=== PATIENT | female | born 1945 | race Caucasian/White ===

== ENCOUNTER 2021-07-10 15:18 | Emergency (ER) | payer MEDICARE, BC ==
[~2021-07-10 15:18] MED LIST: GLUCOPHAGE1000 MG PO; LOPRESSOR 25 MG25 MG PO; NEURONTIN 300300 MG PO; NORCO 10-325 T1 EACH PO; SYNTHROID112 MCG PO; TRICOR145 MG PO; ZANTAC300 MG PO; ZOCOR20 MG PO
[2021-07-10 18:04] LABS: HEMOGLOBIN 14.6 gm/dl (12.3-15.3); RED BLOOD COUNT 4.75 M/UL (4.00-5.10)
== END 2021-07-10 18:50 | disposition home or self-care (01) ==
LOC: ER1 15:18
PROVIDERS: Family Medicine
DX: D69.3 Immune thrombocytopenic purpura (principal); E11.9 Type 2 diabetes mellitus without complications; E07.9 Disorder of thyroid, unspecified; E78.00 Pure hypercholesterolemia, unspecified
CPT/HCPCS: 85025; 99284

== ENCOUNTER → 2021-12-19 | Outpatient (CLI) | payer MEDICARE, BC | LOC: HEART 5 15:11 | DX: J44.9 Chronic obstructive pulmonary disease, unspecified (principal) | CPT/HCPCS: 94060; 94729 ==